=== PATIENT | male | born 1985 | race Caucasian/White ===

== ENCOUNTER 2020-11-02 09:15 | Inpatient (IN) | payer OTHER ==
[2020-11-02] MEDS ORDERED: NICOTINE POLACRILEX 2 MG GUM BUC PRN (11:11)
[2020-11-02] MEDS ORDERED: ACETAMINOPHEN 325 MG TABLET (FP) PO PRN ×2 (11:11)
[2020-11-02] MEDS ORDERED: MAGNESIUM HYDROX 2400MG/30ML ORAL SUSPENSION 30 ML CUP PO PRN (11:11)
[2020-11-02] MEDS ORDERED: MENTHOL/PHENOL 1 EACH UD MM PRN (11:11)
[2020-11-02] MEDS ORDERED: BISMUTH SUBSALICYLATE 524 MG/30 ML UD PO PRN (11:11)
[2020-11-02] MEDS ORDERED: ONDANSETRON *ODT* 4 MG TABLET SL PRN (11:11)
[2020-11-02] MEDS ORDERED: MAG HYDROX/AL HYDROX/SIMETH 30 ML UNIT-DOSE CUP PO PRN (11:11)
[2020-11-02] MEDS ORDERED: MAGNESIUM CITRATE 300 ML BOTTLE PO PRN (11:11)
[2020-11-02 11:12] VITALS: BMI 32.9
[2020-11-02] MEDS ORDERED: METHADONE HCL 10 MG TABLET (FOR DETOX USE ONLY) PO ONE (11:30)
[2020-11-02] MEDS: PRENATAL VITAMINS W/ FOLIC ACID TABLET (FP) PO SCH (12:43)
[2020-11-02] MEDS ORDERED: hydrOXYzine PAMOATE 50 MG CAPSULE (FP) PO PRN (13:35)
[2020-11-02] MEDS: GABAPENTIN 400 MG CAPSULE PO SCH ×2 (13:55→22:09)
[2020-11-02] MEDS ORDERED: hydrOXYzine PAMOATE 25 MG CAPSULE (FP) PO SCH (14:00)
[2020-11-02] MEDS ORDERED: chlordiazePOXIDE HCL 25 MG CAPSULE PO PRN (14:03)
[2020-11-02 16:35] LABS: HEMATOCRIT 31.3 % (35.4-49); HEMOGLOBIN 10.3 GM/dL (11.7-16.9); MCH 29.8 pg (25.7-33.7); MEAN CELL VOLUME 90.4 fl (80-96); MEAN PLT VOLUME 8.5 fl (7.5-11.1); PLATELET COUNT 344 K/MM3 (134-434); RBC 3.46 M/mm3 (4.00-5.60); RDW 17.5 % (11.9-15.9)
[2020-11-02 16:39] LABS: ALBUMIN 3.6 g/dl (3.4-5.0); BLOOD UREA NITROGEN 17.1 mg/dL (7-18)
[2020-11-02 16:42] LABS: CREATININE 0.9 mg/dL (0.55-1.3)
[2020-11-02 16:43] LABS: BILIRUBIN,TOTAL 0.7 mg/dL (0.2-1); TOT PROT 7.3 g/dl (6.4-8.2)
[2020-11-02] MEDS: chlordiazePOXIDE HCL 25 MG CAPSULE PO SCH ×2 (17:50→22:10)
[2020-11-02] MEDS ORDERED: SUVOREXANT 10 MG TABLET PO PRN (22:00)
[2020-11-02] MEDS: MELATONIN 5 MG TABLETS PO SCH (22:09)
[2020-11-02] MEDS: THIAMINE HCL 100 MG TABLET (FP) PO SCH (22:09)
[2020-11-02] MEDS: METHOCARBAMOL 500 MG TABLET PO PRN (22:10)
[2020-11-03] MEDS ORDERED: METHADONE HCL 10 MG TABLET ONE (04:52)
[2020-11-03] MEDS ORDERED: METHADONE HCL 40 MG DISPERSABLE TABLET ONE (04:53)
[2020-11-03] MEDS: METHADONE 200 MG, METHADONE 30 MG PO SCH (06:44)
[2020-11-03] MEDS: cloNIDine HCL 0.1 MG TABLET PO PRN ×3 (06:45→18:35)
[2020-11-03] MEDS: chlordiazePOXIDE HCL 25 MG CAPSULE PO SCH ×4 (06:45→22:08)
[2020-11-03] MEDS: GABAPENTIN 400 MG CAPSULE PO SCH ×3 (06:45→22:08)
[2020-11-03] MEDS ORDERED: METHADONE HCL 40 MG DISPERSABLE TABLET PO SCH (10:00)
[2020-11-03] MEDS ORDERED: METHADONE (DETOX) 20 MG, METHADONE (DETOX) 5 MG PO ONE (10:00)
[2020-11-03] MEDS: LISINOPRIL 20 MG TABLET PO SCH (10:28)
[2020-11-03] MEDS: NICOTINE 21 MG/24 HOURS TOPICAL PATCH TD SCH (10:28)
[2020-11-03] MEDS: PRENATAL VITAMINS W/ FOLIC ACID TABLET (FP) PO SCH (10:29)
[2020-11-03] MEDS: HYDROCORTISONE 0.5% TOPICAL CREAM 30 GM TUBE TP SCH ×2 (14:26→22:11)
[2020-11-03] MEDS: BACITRACIN 15 GM TUBE TOPICAL OINTMENT TP SCH ×2 (14:26→22:12)
[2020-11-03] MEDS: PROMETHAZINE HCL 25 MG TABLET PO PRN ×2 (14:27→22:13)
[2020-11-03] MEDS: AMMONIUM LACTATE 12% LOTION 225 GM BOTTLE TP SCH ×2 (14:27→22:12)
[2020-11-03] MEDS: TOLNAFTATE 1% CREAM 15 GM TUBE TP SCH ×2 (15:12→22:11)
[2020-11-03] MEDS: MELATONIN 5 MG TABLETS PO SCH (22:10)
[2020-11-03] MEDS: IBUPROFEN 400 MG TABLET (FP) PO PRN (22:10)
[2020-11-03] MEDS: THIAMINE HCL 100 MG TABLET (FP) PO SCH (22:10)
[2020-11-04] MEDS: GABAPENTIN 400 MG CAPSULE PO SCH ×3 (06:18→22:18)
[2020-11-04] MEDS: METHADONE 200 MG, METHADONE 30 MG PO SCH (06:19)
[2020-11-04] MEDS: chlordiazePOXIDE HCL 25 MG CAPSULE PO SCH ×4 (06:20→22:18)
[2020-11-04] MEDS ORDERED: METHADONE HCL 10 MG TABLET (FOR DETOX USE ONLY) PO ONE (10:00)
[2020-11-04] MEDS: LISINOPRIL 20 MG TABLET PO SCH (10:46)
[2020-11-04] MEDS: PRENATAL VITAMINS W/ FOLIC ACID TABLET (FP) PO SCH (10:46)
[2020-11-04] MEDS: NICOTINE 21 MG/24 HOURS TOPICAL PATCH TD SCH (10:46)
[2020-11-04] MEDS: HYDROCORTISONE 0.5% TOPICAL CREAM 30 GM TUBE TP SCH ×2 (10:52→22:17)
[2020-11-04] MEDS: TOLNAFTATE 1% CREAM 15 GM TUBE TP SCH ×2 (10:52→22:18)
[2020-11-04] MEDS: BACITRACIN 15 GM TUBE TOPICAL OINTMENT TP SCH ×2 (10:52→22:17)
[2020-11-04] MEDS: AMMONIUM LACTATE 12% LOTION 225 GM BOTTLE TP SCH ×2 (10:52→22:17)
[2020-11-04] MEDS ORDERED: METHADONE HCL 10 MG TABLET PO ONE (11:00)
[2020-11-04] MEDS ORDERED: METHADONE 200 MG, METHADONE 30 MG PO ONE (11:15)
[2020-11-04] MEDS ORDERED: METHADONE HCL 10 MG TABLET ONE (11:25)
[2020-11-04] MEDS ORDERED: METHADONE HCL 40 MG DISPERSABLE TABLET ONE (11:26)
[2020-11-04] MEDS: cloNIDine HCL 0.1 MG TABLET PO PRN (14:01)
[2020-11-04] MEDS: PROMETHAZINE HCL 25 MG TABLET PO PRN (17:28)
[2020-11-04] MEDS: THIAMINE HCL 100 MG TABLET (FP) PO SCH (22:18)
[2020-11-04] MEDS: MELATONIN 5 MG TABLETS PO SCH (22:18)
[2020-11-05] MEDS ORDERED: chlordiazePOXIDE HCL 10 MG CAPSULE PO PRN
[2020-11-05] MEDS ORDERED: METHADONE HCL 10 MG TABLET ONE (03:52)
[2020-11-05] MEDS ORDERED: METHADONE HCL 40 MG DISPERSABLE TABLET ONE (03:52)
[2020-11-05] MEDS: METHADONE 200 MG, METHADONE 30 MG PO SCH (07:15)
[2020-11-05] MEDS: chlordiazePOXIDE HCL 10 MG CAPSULE PO SCH ×4 (07:15→23:00)
[2020-11-05] MEDS: GABAPENTIN 400 MG CAPSULE PO SCH ×3 (07:15→23:01)
[2020-11-05] MEDS: PROMETHAZINE HCL 25 MG TABLET PO PRN ×2 (07:18→14:12)
[2020-11-05] MEDS: IBUPROFEN 400 MG TABLET (FP) PO PRN (07:56)
[2020-11-05] MEDS ORDERED: METHADONE (DETOX) 10 MG, METHADONE (DETOX) 5 MG PO ONE (10:00)
[2020-11-05] MEDS: BACITRACIN 15 GM TUBE TOPICAL OINTMENT TP SCH ×2 (10:47→22:59)
[2020-11-05] MEDS: AMMONIUM LACTATE 12% LOTION 225 GM BOTTLE TP SCH ×2 (10:47→23:00)
[2020-11-05] MEDS: HYDROCORTISONE 0.5% TOPICAL CREAM 30 GM TUBE TP SCH ×2 (10:47→22:59)
[2020-11-05] MEDS: TOLNAFTATE 1% CREAM 15 GM TUBE TP SCH ×2 (10:48→23:01)
[2020-11-05] MEDS: LISINOPRIL 20 MG TABLET PO SCH (10:49)
[2020-11-05] MEDS: PRENATAL VITAMINS W/ FOLIC ACID TABLET (FP) PO SCH (10:50)
[2020-11-05] MEDS: NICOTINE 21 MG/24 HOURS TOPICAL PATCH TD SCH (10:50)
[2020-11-05 10:51] LABS: POTASSIUM 4.7 mmol/L (3.5-5.1)
[2020-11-05 10:55] LABS: CALCIUM 8.9 mg/dL (8.5-10.1)
[2020-11-05 10:56] LABS: ALBUMIN 3.4 g/dl (3.4-5.0); BLOOD UREA NITROGEN 19.9 mg/dL (7-18)
[2020-11-05 11:00] LABS: BILIRUBIN,TOTAL 0.3 mg/dL (0.2-1)
[2020-11-05] MEDS: MELATONIN 5 MG TABLETS PO SCH (23:00)
[2020-11-05] MEDS: THIAMINE HCL 100 MG TABLET (FP) PO SCH (23:01)
[2020-11-06] MEDS ORDERED: METHADONE HCL 40 MG DISPERSABLE TABLET ONE (03:39)
[2020-11-06] MEDS ORDERED: METHADONE HCL 10 MG TABLET ONE (03:39)
[2020-11-06] MEDS: GABAPENTIN 400 MG CAPSULE PO SCH ×4 (06:12→22:11)
[2020-11-06] MEDS: METHADONE 200 MG, METHADONE 30 MG PO SCH (06:12)
[2020-11-06] MEDS: chlordiazePOXIDE HCL 10 MG CAPSULE PO SCH ×3 (06:13→17:31)
[2020-11-06] MEDS: BACITRACIN 15 GM TUBE TOPICAL OINTMENT TP SCH ×3 (08:41→22:14)
[2020-11-06] MEDS: HYDROCORTISONE 0.5% TOPICAL CREAM 30 GM TUBE TP SCH ×3 (08:51→22:14)
[2020-11-06] MEDS: AMMONIUM LACTATE 12% LOTION 225 GM BOTTLE TP SCH ×3 (08:51→22:14)
[2020-11-06] MEDS: MELATONIN 5 MG TABLETS PO SCH ×2 (09:18→22:11)
[2020-11-06] MEDS: TOLNAFTATE 1% CREAM 15 GM TUBE TP SCH ×3 (09:19→23:12)
[2020-11-06] MEDS: THIAMINE HCL 100 MG TABLET (FP) PO SCH ×2 (09:20→22:10)
[2020-11-06] MEDS ORDERED: METHADONE HCL 10 MG TABLET (FOR DETOX USE ONLY) PO ONE (10:00)
[2020-11-06] MEDS: PRENATAL VITAMINS W/ FOLIC ACID TABLET (FP) PO SCH (10:20)
[2020-11-06] MEDS: LISINOPRIL 20 MG TABLET PO SCH (10:20)
[2020-11-06] MEDS: NICOTINE 21 MG/24 HOURS TOPICAL PATCH TD SCH (10:20)
[2020-11-06] MEDS: PROMETHAZINE HCL 25 MG TABLET PO PRN ×3 (10:22→23:59)
[2020-11-06] MEDS ORDERED: cloNIDine HCL 0.1 MG TABLET PO PRN (13:26)
[2020-11-07] MEDS ORDERED: chlordiazePOXIDE HCL 10 MG CAPSULE PO ONE (05:00)
[2020-11-07] MEDS ORDERED: METHADONE HCL 10 MG TABLET ONE (05:12)
[2020-11-07] MEDS ORDERED: METHADONE HCL 40 MG DISPERSABLE TABLET ONE (05:12)
[2020-11-07] MEDS: METHADONE 200 MG, METHADONE 30 MG PO SCH (05:41)
[2020-11-07] MEDS: GABAPENTIN 400 MG CAPSULE PO SCH ×3 (05:43→22:17)
[2020-11-07] MEDS: PROMETHAZINE HCL 25 MG TABLET PO PRN ×3 (05:47→18:29)
[2020-11-07] MEDS ORDERED: METHADONE HCL 5 MG TABLET (FOR DETOX USE ONLY) PO ONE (06:00)
[2020-11-07] MEDS: AMMONIUM LACTATE 12% LOTION 225 GM BOTTLE TP SCH ×2 (10:06→23:23)
[2020-11-07] MEDS: BACITRACIN 15 GM TUBE TOPICAL OINTMENT TP SCH ×2 (10:06→22:51)
[2020-11-07] MEDS: NICOTINE 21 MG/24 HOURS TOPICAL PATCH TD SCH (10:06)
[2020-11-07] MEDS: PRENATAL VITAMINS W/ FOLIC ACID TABLET (FP) PO SCH (10:06)
[2020-11-07] MEDS: HYDROCORTISONE 0.5% TOPICAL CREAM 30 GM TUBE TP SCH ×2 (10:06→22:51)
[2020-11-07] MEDS: LISINOPRIL 20 MG TABLET PO SCH (10:07)
[2020-11-07] MEDS: TOLNAFTATE 1% CREAM 15 GM TUBE TP SCH ×2 (10:07→23:23)
[2020-11-07] MEDS: IBUPROFEN 400 MG TABLET (FP) PO PRN (17:49)
[2020-11-07] MEDS: METHOCARBAMOL 500 MG TABLET PO PRN (22:17)
[2020-11-07] MEDS: THIAMINE HCL 100 MG TABLET (FP) PO SCH (22:18)
[2020-11-07] MEDS: MELATONIN 5 MG TABLETS PO SCH (22:18)
[2020-11-08] MEDS: PROMETHAZINE HCL 25 MG TABLET PO PRN ×2 (00:58→08:00)
[2020-11-08] MEDS ORDERED: METHADONE HCL 40 MG DISPERSABLE TABLET ONE (03:44)
[2020-11-08] MEDS ORDERED: METHADONE HCL 10 MG TABLET ONE (03:44)
[2020-11-08] MEDS ORDERED: chlordiazePOXIDE HCL 10 MG CAPSULE PO ONE (05:00)
[2020-11-08] MEDS: METHADONE 200 MG, METHADONE 30 MG PO SCH (05:38)
[2020-11-08] MEDS: GABAPENTIN 400 MG CAPSULE PO SCH (05:39)
[2020-11-08 09:20] VITALS: BP 135/72; PULSE 87; TEMP 98.9
== END 2020-11-08 10:27 | disposition other institution (70) | DRG 773 ==
LOC: YASAS 09:15 → Y6N 11:16
PROVIDERS: ADMIT Allergy & Immunology; ATTEND Allergy & Immunology
PROC: HZ2ZZZZ Detoxification Services for Substance Abuse Treatment (ICD-10-PCS; principal; 2020-11-02)
DX: F10.230 Alcohol dependence with withdrawal, uncomplicated (principal); F11.20 Opioid dependence, uncomplicated; F13.230 Sedative, hypnotic or anxiolytic dependence with withdrawal, uncomplicated; F15.10 Other stimulant abuse, uncomplicated; F16.10 Hallucinogen abuse, uncomplicated; F17.210 Nicotine dependence, cigarettes, uncomplicated; F19.280 Other psychoactive substance dependence with psychoactive substance-induced anxiety disorder; F19.282 Other psychoactive substance dependence with psychoactive substance-induced sleep disorder; F19.24 Other psychoactive substance dependence with psychoactive substance-induced mood disorder; F31.9 Bipolar disorder, unspecified; F41.9 Anxiety disorder, unspecified; F90.9 Attention-deficit hyperactivity disorder, unspecified type; D64.9 Anemia, unspecified; I10 Essential (primary) hypertension; M54.30 Sciatica, unspecified side; R74.8 Abnormal levels of other serum enzymes; R74.01 Elevation of levels of liver transaminase levels; W18.39XA Other fall on same level, initial encounter; Y93.89 Activity, other specified; Y92.231 Patient bathroom in hospital as the place of occurrence of the external cause; Y99.8 Other external cause status
CPT/HCPCS: 36415; 80053; 85027; 86780; 87389; 93005; 93010; C9803; J0735; U0003